=== PATIENT | female | born 1980 | race African-American/Black ===

== ENCOUNTER 2018-02-28 18:47 | Emergency (ER) | payer MEDICAID ==
[~2018-02-28] VITALS: Ht 175.3 cm; Wt 86.0 kg
[2018-02-28 18:57] VITALS: Ht 175.3 cm; Wt 86.0 kg
[2018-02-28 20:23] VITALS: BP 124/73
== END 2018-02-28 20:23 | disposition home or self-care (01) ==
LOC: ED 18:47
DX: M25.512 Pain in left shoulder (principal); F15.20 Other stimulant dependence, uncomplicated; J45.909 Unspecified asthma, uncomplicated; F17.210 Nicotine dependence, cigarettes, uncomplicated; Z98.890 Other specified postprocedural states; Z91.040 Latex allergy status; Z91.018 Allergy to other foods
CPT/HCPCS: Q0092